=== PATIENT | female | born 1960 | race African-American/Black ===

== ENCOUNTER 2017-04-02 11:36 | Emergency (ER) | payer MEDICAID, OTHER ==
[~2017-04-02] VITALS: Ht 160 cm; Wt 70.0 kg
[2017-04-02] MEDS ORDERED: IBUPROFEN 600MG TABLET PO ONE (16:30)
[2017-04-02] MEDS ORDERED: BACITRACIN ZINC OINT UDPKT TOP ONE (16:30)
[2017-04-02 17:11] VITALS: BP 164/84
== END 2017-04-02 17:23 | disposition home or self-care (01) ==
LOC: ER 11:44
DX: S80.211A Abrasion, right knee, initial encounter (principal); S50.812A Abrasion of left forearm, initial encounter; M54.5 Low back pain; I10 Essential (primary) hypertension; J44.9 Chronic obstructive pulmonary disease, unspecified; M13.861 Other specified arthritis, right knee; F31.9 Bipolar disorder, unspecified; V43.52XA Car driver injured in collision with other type car in traffic accident, initial encounter; Y93.89 Activity, other specified; Y92.488 Other paved roadways as the place of occurrence of the external cause
CPT/HCPCS: 73562; 99284; X7700; Z7610